=== PATIENT | female | born 2000 | race Caucasian/White ===

== ENCOUNTER → 2024-11-11 16:00 | Outpatient (BNV) | payer OTHER, SELFPAY | PROVIDERS: Visit Provider Radiology Diagnostic Radiology | DX: Z30.431 Encounter for routine checking of intrauterine contraceptive device (principal) | CPT/HCPCS: 76830; 76856 ==

== ENCOUNTER 2024-11-11 16:18 | Outpatient (REF) | payer OTHER, SELFPAY ==
--- NOTE | ~2024-11-11 | US_ITS ---
EXAMINATION: US PELVIS TRANSABDOMINAL AND TRANSVAGINAL HISTORY: CONFIRM IUD PLACEMENT COMPARISON: There are no prior studies for comparison. TECHNIQUE: Transabdominal and endovaginal real-time 2D aggarwal-scale ultrasound was performed. FINDINGS: Uterus: The uterus is normal in size, measuring 7.8 x 3.5 x 4.6 cm. Myometrium has a normal echotexture. No fibroids are identified. Endometrium: The endometrial stripe measures 3 mm in thickness. An IUD is seen in appropriate position. Right ovary: The right ovary measures 3.0 x 2.1 x 2.2 cm. The right ovary is normal in size and echotexture. Left ovary: The left ovary measures 3.2 x 2.0 x 2.4 cm. The left ovary is normal in size and echotexture. Pelvic fluid: none. US/US pelvic and transvaginal IMPRESSION: Unremarkable pelvic ultrasound. IUD in appropriate position. Electronically signed by: Jose King MD 11/12/2024 08:34 AM EST
== END 2024-11-11 16:19 | disposition home or self-care (01) ==
LOC: HO.UMASIMG 16:18
PROVIDERS: Visit Provider Family Medicine
DX: Z30.431 Encounter for routine checking of intrauterine contraceptive device (principal)
CPT/HCPCS: 76830; 76856